=== PATIENT | male | born 1985 | race American Indian/Alaskan Native ===

== ENCOUNTER 2021-10-07 03:01 | Emergency (ER) | payer SELFPAY ==
--- NOTE | 2021-10-07 07:17 | Emergency Department Report ---
ED Male HPI - General Chief complaint: Urogenital-Male Stated complaint: DISCHARGE FROM PENIS Time Seen by Provider: 10/07/21 07:04 Source: patient Mode of arrival: Ambulatory Limitations: No Limitations - History of Present Illness Initial comments: 36-year-old male presents to the ER today with complaints of yellow penile discharge. He reports some mild discomfort in penile area but no significant dysuria, hematuria, urinary frequency, testicular pain or swelling, low abdominal pain or back pain. Patient states that his sexual preference is b isexual. He does report one new sexual partner in the past 3 weeks, and unprotected sexual intercourse. He reports no additional symptoms at this time. MD Complaint: penile discharge -: days(s) (1) - Related Data Previous Rx's Medication Instructions Recorded Last Taken Type Acyclovir [Zovirax Tab] 400 mg PO 5XD #50 tab 06/30/13 Unknown Rx DOXYCYCLINE Hyclate [Vibramycin 100 mg PO BID #28 capsule 10/07/21 Unknown Rx CAP] Allergies Allergy/AdvReac Type Severity Reaction Status Date / Time No Known Allergies Allergy Verified 10/07/21 05:30 ED Review of Systems ROS: Stated complaint: DISCHARGE FROM PENIS Other details as noted in HPI Comment: All other systems reviewed and negative Constitutional: denies: chills, fever Eyes: denies: eye pain, eye discharge, vision change ENT: denies: ear pain, throat pain, dental pain, hearing loss, epistaxis, congestion Respiratory: denies: cough, shortness of breath, SOB with exertion, SOB at rest, wheezing Gastrointestinal: denies: abdominal pain, nausea, vomiting, diarrhea, constipation, hematemesis, hematochezia Genitourinary: discharge. denies: urgency, dysuria, frequency, hematuria, testicular pain, testicular mass Musculoskeletal: denies: back pain, joint swelling, arthralgia Skin: denies: rash, lesions, change in color, change in hair/nails, pruritus Neurological: denies: headache, weakness, numbness, paresthesias, confusion, abnormal gait, vertigo Psychiatric: denies: anxiety, depression, auditory hallucinations, visual hallucinations, homicidal thoughts, suicidal thoughts Hematological/Lymphatic: denies: easy bleeding, easy bruising, swollen glands ED Past Medical Hx - Past Medical History Previous Medical History?: No - Surgical History Past Surgical History?: No - Social History Smoking Status: Current Every Day Smoker Substance Use Type: Alcohol, Marijuana - Medications Home Medications: Home Medications Medication Instructions Recorded Confirmed Last Taken Type Acyclovir [Zovirax Tab] 400 mg PO 5XD #50 tab 06/30/13 Unknown Rx DOXYCYCLINE Hyclate [Vibramycin 100 mg PO BID #28 capsule 10/07/21 Unknown Rx CAP] ED Physical Exam - General Limitations: No Limitations General appearance: alert, in no apparent distress - Head Head exam: Present: atraumatic, normocephalic, normal inspection - Eye Eye exam: Present: normal appearance, PERRL, EOMI Pupils: Present: normal accommodation - Neck Neck exam: Present: normal inspection, full ROM. Absent: tenderness - Respiratory Respiratory exam: Present: normal lung sounds bilaterally. Absent: respiratory distress, wheezes, rales, rhonchi - Cardiovascular Cardiovascular Exam: Present: regular rate, normal rhythm, normal heart sounds - GI/Abdominal GI/Abdominal exam: Present: soft. Absent: distended, tenderness, guarding, rebound - Neurological Exam Neurological exam: Present: alert, oriented X3, CN II-XII intact, normal gait - Psychiatric Psychiatric exam: Present: normal affect, normal mood - Skin Skin exam: Present: intact ED Course Vital Signs 10/07/21 10/07/21 05:27 05:29 Temperature 98.8 F Pulse Rate 68 Respiratory 16 Rate Blood Pressure 129/85 O2 Sat by Pulse 99 Oximetry Critical care attestation.: If time is entered above; I have spent that time in minutes in the direct care of this critically ill patient, excluding procedure time. ED Disposition Clinical Impression: Urethritis, Penile discharge Disposition: 01 HOME / SELF CARE / HOMELESS Is pt being admited?: No Does the pt Need Aspirin: No Condition: Stable Instructions: Safe Sex Additional Instructions: Take the doxycycline as prescribed and to completion. I recommend no sexual intercourse 7 days after treatment. Follow up with PCP as needed. Return to ED if worse. Prescriptions: DOXYCYCLINE Hyclate [Vibramycin CAP] 100 mg PO BID #28 capsule Referrals: [facility] [Provider Group] - 3-5 Days Forms: STI Treatment and Prevention Time of Disposition: 07:39
[2021-10-07] MEDS ORDERED: LIDOCAINE-MPF (1%) 10 MG/1 ML VIAL 5 ML INFILTRATI ONE (07:40)
[2021-10-07 08:52] VITALS: BP 126/69
== END 2021-10-07 08:53 | disposition home or self-care (01) ==
LOC: ED 03:01
DX: N34.2 Other urethritis (principal); F17.200 Nicotine dependence, unspecified, uncomplicated; F12.10 Cannabis abuse, uncomplicated
CPT/HCPCS: 96372; 99282; J0696; J3490